=== PATIENT | male | born 1995 | race Caucasian/White ===

== ENCOUNTER 2018-03-16 02:52 | Emergency (ER) | payer OTHER ==
[~2018-03-16] VITALS: Ht 182.9 cm; Wt 88.0 kg
[2018-03-16 02:58] VITALS: BP 158/94
== END 2018-03-16 03:19 | disposition home or self-care (01) ==
LOC: ER 02:53
DX: M54.2 Cervicalgia (principal); G89.29 Other chronic pain; M54.9 Dorsalgia, unspecified; F17.200 Nicotine dependence, unspecified, uncomplicated
CPT/HCPCS: 99283

== ENCOUNTER 2020-01-30 04:05 | Emergency (ER) | payer SELFPAY ==
[~2020-01-30] VITALS: Ht 180.3 cm; Wt 106.7 kg
[2020-01-30 04:09] VITALS: BP 170/106
[2020-01-30] MEDS ORDERED: ketorolac trometh inj. 60 MG/2 ML VIAL IM ONE (04:55)
[2020-01-30] MEDS ORDERED: LIDOcaine 1% W/epiNEPHrine 1:200,000 10ml vial ONE (08:00)
== END 2020-01-30 05:37 | disposition home or self-care (01) ==
LOC: ER 04:06
DX: J36 Peritonsillar abscess (principal); R50.9 Fever, unspecified; G89.29 Other chronic pain; Z72.89 Other problems related to lifestyle
CPT/HCPCS: 42700; 96372; 99283; J1885